=== PATIENT | female | born 1975 | race Two or more races ===

== ENCOUNTER 2017-05-12 12:34 | Emergency (ER) | payer BC ==
[2017-05-12] MEDS ORDERED: fentaNYL 100 MCG/2 ML INJ IVP ONE ×2 (12:47→15:08)
[2017-05-12] MEDS ORDERED: ONDANSETRON 4 MG/2 ML VIAL IVP ONE (12:47)
[2017-05-12 13:17] VITALS: RESP 16
--- NOTE | 2017-05-12 13:26 | EDPHY ---
H & P Time Seen by Provider: 05/12/17 12:58 HPI/ROS: Chief complaint. Fall HPI. Patient is a 41-year-old female visiting from [place] had a slip and fall in [facility]. She slipped on iced and then fell on to a rock landing on her bottom and low back. She did not strike her head or lose consciousness. No neck pain. Pain is low back. Hurts to walk and lie on her back. No weakness to her legs. No bowel or bladder symptoms. She was a little lightheaded when she tried to stand and walk initially. ROS Constitutional. no fever/chills, no weakness Eyes. no problems with vision ENT. no sore throat, no nasal drainage Cardiovascular. no chest pain Respiratory. no shortness of breath, no cough Abdominal. no abdominal pain, no nausea/vomiting, no diarrhea . no problems urinating MS. Low back pain Skin. no rash Lymph. no swollen glands Neuro. no headache, no dizziness, no difficulty walking or with speech Past Medical/Surgical History: Past medical history significant for spine problems. Patient has and L5-S1 bulging disc with occasional sciatica. She also has a cervical schwannoma Social History: , nonsmoker, no alcohol Smoking Status: Never smoked Physical Exam: General Appearance: Alert well-developed female moderate distress vital signs stable Eyes: Pupils equal and round no pallor or injection. ENT, Mouth: Mucous membranes are moist. Respiratory: There are no retractions, lungs are clear to auscultation. Cardiovascular: Regular rate and rhythm. Gastrointestinal: Abdomen is soft and nontender, no masses, bowel sounds normal. Neurological: Awake and alert, sensory and motor exams grossly normal. Skin: Warm and dry, no rashes. Musculoskeletal: Neck is supple nontender. Tenderness to palpation over the sacrum and coccyx area. No obvious swelling or deformity. No evidence for break in the skin. Extremities symmetrical, full range of motion. Psychiatric: Patient is oriented X 3, there is no agitation. Constitutional: Initial Vital Signs Temperature (C) 36.8 C 05/12/17 12:40 Heart Rate 117 H 05/12/17 12:40 Respiratory Rate 30 H 05/12/17 12:40 Blood Pressure 145/65 H 05/12/17 12:40 O2 Sat (%) 98 05/12/17 12:40 O2 Delivery Mode Room Air Allergies/Adverse Reactions: No Known Allergies Allergy (Unverified 05/12/17 12:40) Home Medications: Medication Instructions Recorded Hydrocodone/APAP 5/325 [[place] 1 each PO Q4-6PRN PRN #14 tab 05/12/17 5/325 (*)] Levothyroxine 05/12/17 Medical Decision Making - Diagnostics Imaging Results: Imaging Impressions Lumbar Spine X-Ray 05/12/17 13:38 Impression: 1. Minimally displaced fracture at the sacrococcygeal junction, better characterized on subsequent x-rays. 2. L5-S1 degenerative disk disease. Sacrum and Coccyx X-Ray 05/12/17 13:38 Impression: 1. Nondisplaced obliquely oriented fracture involving the lumbosacral transition. X-ray of the sacrum and coccyx shows a nondisplaced obliquely oriented fracture through the lumbosacral transition. Procedures: IV fentanyl and Zofran Repeat fentanyl ED Course/Re-evaluation: Re-evaluation 2:15 p.m.. Patient and I discussed imaging studies. We discussed treatment plan including criteria for return and importance of follow- up and further evaluation. She and her expressed understanding and agreement. They are visiting from [place] and will be given a CD with her x- rays for follow up with her regular physician when they return home to [place] Differential Diagnosis: I considered fracture, dislocation, contusion. No evidence for cauda equina syndrome - Data Points Medications Given: Discontinued Medications Fentanyl (Sublimaze) 50 mcg IVP EDNOW ONE Stop: 05/12/17 12:48 Last Admin: 05/12/17 12:50 Dose: 50 mcg Fentanyl (Sublimaze) 50 mcg IVP EDNOW ONE Stop: 05/12/17 15:09 Last Admin: 05/12/17 15:17 Dose: 50 mcg Ondansetron HCl (Zofran) 4 mg IVP EDNOW ONE Stop: 05/12/17 12:48 Last Admin: 05/12/17 12:50 Dose: 4 mg Departure - Departure Disposition: Home, Routine, Self-Care Clinical Impression: Sacral fracture, closed Qualifiers: Encounter type: initial encounter Zone of sacrum fracture: unspecified portion of sacrum Qualified Code(s): S32.10XA - Unspecified fracture of sacrum, initial encounter for closed fracture Condition: Good Instructions: Sacral Fracture (ED) Additional Instructions: Ice to sore areas next 24-48 hours. Ibuprofen 400 mg every 6 hr. Hydrocodone in addition for pain. Return for worsening pain, leg weakness, bowel or bladder symptoms. Colace and Metamucil to prevent constipation while taking pain medication. Follow up with your regular physician when you return home to [place] Prescriptions: Hydrocodone/APAP 5/325 [Republic 5/325 (*)] 1 each PO Q4-6PRN PRN #14 tab PRN Reason: Pain, Moderate
[2017-05-12 16:04] VITALS: BP 116/75; PULSE 84; TEMP 99; O2SAT 97
== END 2017-05-12 16:03 | disposition home or self-care (01) ==
DX: S32.10XA Unspecified fracture of sacrum, initial encounter for closed fracture (principal); W01.0XXA Fall on same level from slipping, tripping and stumbling without subsequent striking against object, initial encounter; Y92.830 Public park as the place of occurrence of the external cause
CPT/HCPCS: 96374; J2405; J3010